=== PATIENT | female | born 1955 | race Hispanic/Latino ===

== ENCOUNTER → 2023-08-17 | Outpatient (CLI) | payer MEDICARE | END | disposition home or self-care (01) | LOC: RAH 10:34 | PROVIDERS: ATTEND Internal Medicine | DX: D25.9 Leiomyoma of uterus, unspecified (principal); R10.2 Pelvic and perineal pain | CPT/HCPCS: 76830 ==

== ENCOUNTER → 2023-12-02 | Outpatient (CLI) | payer MEDICARE ==
[~2023-12-02] MED LIST: IOHEXOL 350 MG/ML 100ML INFUS..BTL IV ONE
== END | disposition home or self-care (01) ==
LOC: RAH 09:13
PROVIDERS: ATTEND Internal Medicine
DX: K57.30 Diverticulosis of large intestine without perforation or abscess without bleeding (principal); R10.31 Right lower quadrant pain; I70.90 Unspecified atherosclerosis; M47.815 Spondylosis without myelopathy or radiculopathy, thoracolumbar region; Z90.11 Acquired absence of right breast and nipple; Z90.49 Acquired absence of other specified parts of digestive tract
CPT/HCPCS: 74178; Q9967

== ENCOUNTER 2024-04-18 18:01 | Emergency (ER) | payer MEDICARE ==
[~2024-04-18] VITALS: Ht 154.9 cm; Wt 61.2 kg
[2024-04-18 18:44] LABS: BASOPHILS # (AUTO) 0.03 K/uL (0.00-0.20); BASOPHILS % (AUTO) 0.4 % (0.0-5.0); EOSINOPHILS # (AUTO) 0.07 K/uL (0.00-0.70); EOSINOPHILS % (AUTO) 0.9 % (0.0-8.0); HEMATOCRIT 41.4 % (36-48); IMMATURE GRANULOCYTE ABSOLUTE 0.03 K/uL (0-1); LYMPHOCYTES # (AUTO) 2.1 K/uL (1.0-4.8); LYMPHOCYTES % (AUTO) 27.7 % (21.0-51.0); MEAN CORPUSCULAR HEMOGLOBIN 29.4 pg (27.0-33.0); MEAN CORPUSCULAR HGB CONC 33.1 g/dL (32.0-36.0); MEAN CORPUSCULAR VOLUME 88.8 fL (79-99); MONOCYTES # (AUTO) 0.7 K/uL (0.1-1.0); MONOCYTES % (AUTO) 8.9 % (3.0-13.0); NEUTROPHILS # (AUTO) 4.7 K/uL (1.8-7.7); NEUTROPHILS % (AUTO) 61.7 % (40.0-77.0); PLATELET COUNT (AUTO) 295 K/uL (130-400); RED BLOOD CELL COUNT(AUTO) 4.66 MIL/uL (4.00-5.50); RED CELL DISTRIBUTION WIDTH 13.8 % (11.0-15.5); WHITE BLOOD COUNT (AUTO) 7.7 K/uL (4.8-10.8)
[2024-04-18 18:55] LABS: CREATININE 0.8 mg/dL (0.5-1.0); POTASSIUM 3.7 mmol/L (3.5-5.1)
--- NOTE | 2024-04-18 19:13 | HMCIMG ---
Exam Type: CT HEAD/BRAIN W/O CONTRAST Clinical Information: facial numbness Comparison: None CT Dose Index (CTDI): 57.33 mGy Dose Length Product (DLP): 956.79 total mGy-cm Findings: The examination is unremarkable. Oliva-white matter junction is preserved. No intra or extra axial lesions or fluid collections are seen. Specifically, oliva and white matter are normal in signal characteristics with normal caliber of ventricles and periventricular cisterns with no evidence of intra or or extra-axial hemorrhage, lacunar infarct, or major territorial infarct, mass, or other abnormality. There are no infarcts. There are no hemorrhages. Periventricular white matter locations are preserved. The orbital contents and structures of the posterior fossa are intact. Impression: Normal CT of the head. This study was performed using dose reduction techniques to include automated exposure control and/or adjustment of the mA and/or kV according to patient size.
--- NOTE | 2024-04-18 19:29 | ERN ---
General Chief Complaint: Numbness Stated Complaint: RIGHT SIDED FACIAL NUMBNESS SINCE 1 WEEK AGO Time Seen by MD: 18:10 Time Seen by Midlevel: 18:10 Source: patient History of Present Illness Initial Comments Patient is a 68-year-old female with a past medical history of anxiety and hypertension presenting to the emergency department with intermittent episodes of bilateral facial numbness. She states the episodes have been ongoing for the last week. 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 At that time when she was evaluated she had the similar symptoms and was admitted where she had an MRI and everything was normal. She states that this time her symptoms started one week ago but became concerned after she googled her symptoms. She specifically denies any focal weakness, vision changes, headache, numbness to upper and lower extremities, or any other symptoms at this time. Past Medical History Past Medical History: Anxiety, Cancer, High Cholesterol, Hypertension Past Surgical History: Other Surgical History Other: RIGHT MASTECTOMY ROS Dictation CONSTITUTIONAL: Negative except for HPI HEAD/FACE: Negative except for HPI EENT: Negative except for HPI RESPIRATORY: Negative except for HPI GASTROINTESTINAL/ABDOMINAL: Negative except for HPI GENITOURINARY: Negative except for HPI MUSCULOSKELETAL: Negative except for HPI INTEGUMENTARY: Negative except for HPI NEUROLOGICAL/PSYCH: Negative except for HPI HEMATOLOGIC/LYMPHATIC: Negative except for HPI All Systems Negative, Except as noted above. 13 point review of systems assessed and all negative except for above. Physical Exam Physical Exam Dictation Vital Signs reviewed General Appearance: Alert, oriented x 3, no acute distress, well developed, nourished. Head and Face: non-traumatic. Eyes: PERRL, pink conjunctivas, eyelid no trauma, anterior chamber with arcus senilis. Ears: Pinnas intact and no signs of trauma or erythema ear canals clear and no discharge TM no erythema Nose: No discharge, no bleeding. Oropharynx: Mouth normal, tongue pink, pharynx clear,no erythema, tonsils no exudates, no abscesses noted, mucous membrane moist Neck: Supple, non-tender, no thyromegaly, no masses, no JVD, no bruits Breast:Deferred Chest:No tenderness, no crepitus, no paradoxical movement, no retractions Lungs:Clear, well-ventilated, symmetric, no rales, no wheezing, no rhonchi, no stridor, good breath sounds bilaterally Heart: Regular rate, regular rhythm, no murmur, no gallops Vascular: no peripheral edema, Abdomen: Soft, positive bowel sounds, nondistended, no guarding, nontender, no rebound, no masses no hepatomegaly, no splenomegaly, no Briseno's sign, no hernias. Rectal: Deferred Genital: Deferred Neurological: Normal speech, motor function intact, sensory function intact Musculoskeletal: Neck nontender, full range of motion, back nontender, full range of motion, Extremities: nontender, full range of motion Skin: Color pink, dry, no turgor, no rash, no lacerations, no abrasions, no contusions. Lymphatic: Deferred Stroke Patient?: No Is Patient Candidate for t-PA?: No Did the Patient Receive t-PA?: No Contraindication for t-PA?: Medical Contraindication (Patient is out of window for tPA given onset of symptoms being over one week ago) NIH STROKE SCALE: NIH STROKE SCALE Response (Comments) Value Level of Consciousness Alert 0 Ask patient month and their age Answers both correct 0 Command to open eyes, make fist and let go Obeys both correct 0 Best gaze (horizontal eye movement) Normal 0 Visual Field Testing No Visual Field Loss 0 Facial Paresis Normal / Symmetrical 0 Motor Function - Left Arm Normal 0 Motor Function - Right Arm Normal 0 Motor Function - Left Leg Normal 0 Motor Function - Right Leg Normal 0 Limb Ataxia No Ataxia 0 Sensory-pin prick to arms, legs, trunk and face Normal 0 Best Language (describe picture, name items and read) No Aphasia 0 Dysarthria (read several words) Normal Articulation 0 Extinction and Inattention Normal 0 Total 0 Results Laboratory and Microbiology Lab and Micro Result Laboratory Tests Test 04/18/24 18:37 White Blood Count 7.7 K/uL (4.8-10.8) Red Blood Count 4.66 MIL/uL (4.00-5.50) Hemoglobin 13.7 g/dL (12.0-16.0) Hematocrit 41.4 % (36-48) Mean Corpuscular Volume 88.8 fL (79-99) Mean Corpuscular Hemoglobin 29.4 pg (27.0-33.0) Mean Corpuscular Hemoglobin Concent 33.1 g/dL (32.0-36.0) Red Cell Distribution Width 13.8 % (11.0-15.5) Platelet Count 295 K/uL (130-400) Mean Platelet Volume 8.5 fL (7.5-10.5) Immature Granulocyte % (Auto) 0.4 % (0-1) Neutrophils (%) (Auto) 61.7 % (40.0-77.0) Lymphocytes (%) (Auto) 27.7 % (21.0-51.0) Monocytes (%) (Auto) 8.9 % (3.0-13.0) Eosinophils (%) (Auto) 0.9 % (0.0-8.0) Basophils (%) (Auto) 0.4 % (0.0-5.0) Neutrophils # (Auto) 4.7 K/uL (1.8-7.7) Lymphocytes # (Auto) 2.1 K/uL (1.0-4.8) Monocytes # (Auto) 0.7 K/uL (0.1-1.0) Eosinophils # (Auto) 0.07 K/uL (0.00-0.70) Basophils # (Auto) 0.03 K/uL (0.00-0.20) Absolute Immature Granulocyte (auto 0.03 K/uL (0-1) Nucleated Red Blood Cells 0.0 % (0.0-0.19) Sodium Level 143 mmol/L (136-145) Potassium Level 3.7 mmol/L (3.5-5.1) Chloride Level 104 mmol/L (101-111) Carbon Dioxide Level 33 mmol/L (21-32) H Blood Urea Nitrogen 13 mg/dL (7-18) Creatinine 0.8 mg/dL (0.5-1.0) Glomerular Filtration Rate Calc 80 mL/min (>90) Random Glucose 119 mg/dL (70-105) H Total Calcium 9.8 mg/dL (8.5-10.1) Labs Reviewed?: Yes MDM MDM: Patient is a 68-year-old female with a past medical history of anxiety and hypertension presenting to the emergency department with intermittent episodes of bilateral facial numbness. She states the episodes have been ongoing for the last week. 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 At that time when she was evaluated she had t he similar symptoms and was admitted where she had an MRI and everything was normal. She states that this time her symptoms started one week ago but became concerned after she googled her symptoms. She specifically denies any focal weakness, vision changes, headache, numbness to upper and lower extremities, or any other symptoms at this time. On physical examination patient is in no acute distress. She was able to ambulate from waiting room to the examination room without assistance with a normal gait. Her neurological examination is unremarkable. Patient has an NIH score of 0. Her GCS is 15. There was no facial droop. During my examination patients specifically denies having any numbness. She states her symptoms are intermittent in nature. She has normal strength to bilateral upper and lower extremities. Low suspicion for stroke at this time given her unremarkable neurological examination. A CT scan of the head was obtained which shows no acute intracranial abnormality. CBC and chemistries unremarkable. Patient was observed in the emergency department for over 2 hours and has remained stable and asymptomatic. Patient will be discharged home with supportive management. Differential diagnosis: Intracranial bleed, paresthesias, electrolyte abnor mality, anxiety There are no social concerns with this patient. Prescription drug management Prescriptions will include: None Medical management and examination interpretation discussions were had by me with other qualified healthcare professionals as indicated for the patient's care. ED Course Orders Procedure Category Date Status Time Cbc With Differential LAB 04/18/24 Complete 18:19 Basic Metabolic Panel LAB 04/18/24 Complete 18:19 Ct Head/Brain W/O CT 04/18/24 Resulted Contrast 18:19 Vital Signs Date Time Temp Pulse Resp B/P (MAP) Pulse Ox O2 Delivery O2 Flow Rate FiO2 04/18/24 19:38 99.3 80 20 140/65 98 Room Air* 0 21 04/18/24 18:02 99.3 84 20 142/66 99 Room Air 0 [facility] [address] [place] [id number] IMAGING REPORT Signed PATIENT: KARLOS DIAZ MR#: [id number] : 1955 SEX: F AGE: 68 LOCATION: [facility] ORDER 19 STATUS: REG ER REPORT#: [id number] SERVICE 18 REASON: facial numbness ORDERING PHYSICIAN: MERCEDES SMYTH PROCEDURE: HEAD WO - CT HEAD/BRAIN W/O CONTRAST Exam Type: CT HEAD/BRAIN W/O CONTRAST Clinical Information: facial numbness Comparison: None CT Dose Index (CTDI): 57.33 mGy Dose Length Product (DLP): 956.79 total mGy-cm Findings: The examination is unremarkable. Oliva-white matter junction is preserved. No intra or extra axial lesions or fluid collections are seen. Specifically, oliva and white matter are normal in signal characteristics with normal caliber of ventricles and periventricular cisterns with no evidence of intra or or extra-axial hemorrhage, lacunar infarct, or major territorial infarct, mass, or other abnormality. There are no infarcts. There are no hemorrhages. Periventricular white matter locations are preserved. The orbital contents and structures of the posterior fossa are intact. Impression: Normal CT of the head. This study was performed using dose reduction techniques to include automated exposure control and/or adjustment of the mA and/or kV according to patient size. DICTATED BY: LAUREN GABRIEL MD DATE: 04/18/241909 ELECTRONICALLY SIGNED BY: LAUREN GABRIEL MD DATE: 04/18/241912 DX & DISP Disposition: Discharge Departure Impression: Primary Impression: Paresthesia Condition: Stable Additional Instructions: Your blood work today is unremarkable. Your CT scan does not show any acute abnormalities. Please follow up with your primary care doctor in 2-3 days for repeat evaluation. Return to the ER for any new or worsening symptoms Referrals: JOYCE CALDERÓN MD (PCP) Time of Disposition: 19:26 I have reviewed the case, and I agree with, Diagnosis and Plan I performed the substantive portion of the visit. I have reviewed and personally made and approve the management plan that is documented in the note by myself or the ROXANA. I acknowledge for responsibility for the patient's management plan. MERCEDES SMYTH Apr 18, 2024 19:29
[2024-04-18 19:38] VITALS: BP 140/65; PULSE 80; RESP 20; TEMP 99.4; O2SAT 98
== END 2024-04-18 19:56 | disposition home or self-care (01) ==
LOC: EDH 18:01
DX: R20.0 Anesthesia of skin (principal); E78.00 Pure hypercholesterolemia, unspecified; I10 Essential (primary) hypertension; F41.9 Anxiety disorder, unspecified
CPT/HCPCS: 36415; 70450; 80048; 85025; 99284

== ENCOUNTER → 2024-10-31 | Outpatient (CLI) | payer MEDICARE ==
[~2024-10-31] MED LIST changes: -IOHEXOL 350 MG/ML 100ML INFUS..BTL IV ONE; +POTA25TA41 PO
--- NOTE | 2024-11-08 16:55 | HMCIMG ---
STUDY PERFORMED: BD Bone Density DEXA Axial Skeleton TECHNIQUE: [employer] Dual Energy X-ray absorptiometry (DEXA) COMPARISON: None available. FINDINGS: Lumbar Spine L1-L4 Density(g/cm2): 0.916 T-score: -1.2 Z-score: 0.9 Left Femoral Neck Density(g/cm2): 0.754 T-score: -1.0 Z-score: 0.7 Total Proximal Femur Density(g/cm2): 0.896 T-score: -0.5 Z-score: 1.0 INTERPRETATION: The bone mineral density in the lumbar spine is in the osteopenia range. The bone mineral density of the left hip is in the osteopenia range. COMMENTS: T-scores are a means of evaluating bone mineral density relative to young adult population and are defined as the number of standard deviations of the mean. T-scores at or above -1.0 are considered normal. T-scores between -1.0 and -2.5 are consistent with osteopenia. T-scores at or below -2.5 are consistent with osteoporosis. T-score values below -2.0 are thought to be associated with an increased risk of fracture. Z-scores are related to age-matched controls. The study does not distinguish osteoporosis from other causes of decreased bone density such as osteomalacia or multiple myeloma. Therefore, if clinically indicated or Z-scores are less than -2.0, additional metabolic studies may be appropriate. RECOMMENDATIONS: National Osteoporosis Foundation (NOF) guidelines recommend initiating therapy to reduce fracture risk in women with BMD: T-Score below -2 SD T-Score Below -1.5 with other risks factors present NOF guidelines recommend all people with T score of -2.5 and below (osteoporosis) consider taken osteoporosis medication. The NOF recommends adults under age 50 need 1,000 mg of calcium and 400-800 IU of vitamin D daily. Adults 50 and over need 1,200 mg of calcium and 800-1000 IU of vitamin D daily. Effective therapies for the prevention of osteoporosis include bisphosphonates (Fosamax and Actonel) and Evista. Hormone therapy may be an option based on review of risks and benefit of treatment. People with diagnosed cases of osteoporosis or at high risk for fracture should have regular bone mineral density tests. For patients eligible for Medicare, routine testing is allowed once every 2 years. The testing frequency can be increased to one year for patients who have rapidly progressing disease, those who are receiving or discontinuing medical therapy to restore bone mass, or have additional risk factors. /[place]
== END | disposition home or self-care (01) ==
LOC: RAH 13:50
PROVIDERS: ATTEND Internal Medicine
DX: M85.89 Other specified disorders of bone density and structure, multiple sites (principal)
CPT/HCPCS: 77080

== ENCOUNTER → 2025-02-08 | Outpatient (CLI) | payer MEDICARE ==
[2025-02-08 13:47] LABS: IMMATURE GRANULOCYTE ABSOLUTE 0.01 K/uL (0-1); NUCLEATED RED BLOOD CELLS 0.0 % (0.0-0.19); PLATELET COUNT (AUTO) 308 K/uL (130-400); RED BLOOD CELL COUNT(AUTO) 4.83 MIL/uL (4.00-5.50); RED CELL DISTRIBUTION WIDTH 14.0 % (11.0-15.5); WHITE BLOOD COUNT (AUTO) 7.2 K/uL (4.8-10.8)
[2025-02-08 14:04] LABS: ASPARTATE AMINOTRANSFERASE 20.0 U/L (10-37); CREATININE 0.7 mg/dL (0.5-1.0); GLOMERULAR FILTR. RATE CALC 93.0 mL/min (>90); GLUCOSE,RANDOM 106.0 mg/dL (70-105); SODIUM SERUM 142.0 mmol/L (136-145); TOTAL PROTEIN, SERUM 7.8 g/dL (6.0-8.3); UREA NITROGEN, BLOOD 15.0 mg/dL (7-18)
[2025-02-08 14:05] LABS: INR 0.98 (0.85-1.15)
== END | disposition home or self-care (01) ==
LOC: LAB 13:01
PROVIDERS: ATTEND Internal Medicine Gastroenterology
DX: R93.2 Abnormal findings on diagnostic imaging of liver and biliary tract (principal); R10.10 Upper abdominal pain, unspecified
CPT/HCPCS: 36415; 80053; 82105; 85025; 85610

== ENCOUNTER → 2025-02-20 | Outpatient (CLI) | payer MEDICARE ==
[~2025-02-20] MED LIST changes: +GADOTERATE MEGLUMINE 10 MMOL/20 ML VIAL IV ONE
--- NOTE | 2025-02-21 18:38 | HMCIMG ---
EXAMINATION: MRI OF THE ABDOMEN WITHOUT AND WITH CONTRAST. CLINICAL HISTORY: Abnormal finding. COMPARISON: None. TECHNIQUE: Multiplanar, multisequence MR images of the abdomen are submitted. Post contrast images were obtained after administration of IV contrast. FINDINGS: Elevated left hemidiaphragm ??? eventration. Non-visualized right breast ??? post operative. There is a cyst in the left breast measuring 1.2 x 1.0 cm. Non-enhancing T1 hypointense and T2 hyperintense lesions involving both lobes, measuring about 0.3 cm to 1.5 cm. Intrahepatic bile ducts are normal in caliber. The common bile duct is normal in caliber throughout its course without evidence of choledocholithiasis. The gallbladder is surgically absent. Mildly dilated extrahepatic bile ducts. Non-enhancing T1 hypointense and T2 hyperintense lesions involving the distal body of the pancreas measuring 0.4 x 0.3 cm. The pancreas head, and tail appears normal in caliber and signal intensity. No peripancreatic fat plane stranding. The main pancreatic duct is normal in caliber. The spleen is normal in caliber and signal intensity. There is no focal abnormality appreciated within the spleen. There is no focal abnormality appreciated within the adrenal glands. The kidneys are normal in caliber and signal intensity with normal enhancement. The included gastrointestinal tract is normal in caliber and signal intensity. There is no ascites. There is no lymphadenopathy. There is multilevel moderate degenerative spondylosis of the spine with levoscoliosis. IMPRESSION: Hepatic and pancreatic cysts. /[place]
== END | disposition home or self-care (01) ==
LOC: RAH 14:01
PROVIDERS: ATTEND Internal Medicine Gastroenterology
DX: K86.2 Cyst of pancreas (principal); K76.89 Other specified diseases of liver; M47.816 Spondylosis without myelopathy or radiculopathy, lumbar region; R93.2 Abnormal findings on diagnostic imaging of liver and biliary tract; Z90.49 Acquired absence of other specified parts of digestive tract
CPT/HCPCS: 74183; A9575

== ENCOUNTER → 2025-04-17 | Outpatient (CLI) | payer MEDICARE ==
--- NOTE | 2025-04-18 02:56 | HMCIMG ---
PELVIC ULTRASOUND (TRANSABDOMINAL) CLINICAL HISTORY: Abdominal pain. TECHNIQUE: Transabdominal grayscale ultrasound evaluation of the pelvis was performed. Color Doppler imaging was utilized as indicated. COMPARISON: None. FINDINGS: The uterus measures approximately 5.2 x 1.4 x 3.7 cm. The endometrium measures approximately 3 mm, within normal limits. The right ovary measures 1.1 x 0.6 x 1.3 cm. No focal ovarian mass is identified. The right ovary demonstrates normal color flow signal on Doppler evaluation. The left ovary measures 1.6 x 0.9 x 1.8 cm. No focal ovarian mass is identified. Technologist sheet documents left ovarian normal color flow but not documented on the images. No free fluid is identified. IMPRESSION: Unremarkable transabdominal pelvic ultrasound. /[place]
== END | disposition home or self-care (01) ==
LOC: RAH 14:28
PROVIDERS: ATTEND Internal Medicine Gastroenterology
DX: R10.31 Right lower quadrant pain (principal)
CPT/HCPCS: 76856